=== PATIENT | female | born 1965 | race Hispanic/Latino ===

== ENCOUNTER 2023-02-27 08:20 | Day surgery (SDC) | payer OTHER ==
[2023-02-27 08:41] LABS: Potassium 3.8 mEq/L (3.5-5.1)
[2023-02-27] MEDS ORDERED: CEFAZOLIN SODIUM 2 GM/VIAL ONE (08:57)
[2023-02-27] MEDS ORDERED: Ringers Lactate 1,000 ML IV ONE (08:57)
[2023-02-27] MEDS ORDERED: dexAMETHasone 10 MG/ML VIAL ONE (10:55)
[2023-02-27] MEDS ORDERED: FENTANYL CITR 100 MCG/2 ML ONE (10:55)
[2023-02-27] MEDS ORDERED: MIDAZOLAM HCL 2 MG/2 ML INJ ONE (10:55)
[2023-02-27] MEDS ORDERED: propofoL 200 MG/20 ML VIAL IV ONE (10:55)
[2023-02-27] MEDS ORDERED: ONDANSETRON 4 MG/2 ML VIAL ONE (10:57)
[2023-02-27] MEDS ORDERED: BUPIVACAINE 0.25% PF 10 ML VIAL ONE (11:01)
[2023-02-27] MEDS ORDERED: LIDOCAINE 2% MPF 5 ML VIAL ONE (11:01)
[2023-02-27] MEDS ORDERED: KETOROLAC 30 MG/ML INJ ONE (11:08)
--- NOTE | 2023-02-27 11:46 | P.OP ---
Preoperative diagnosis: RIGHT Breast infected sebaceous cyst Postoperative diagnosis: RIGHT Breast infected sebaceous cyst Primary procedure: Excision of RIGHT Breast infected sebaceous cyst Anesthesia: GETA + Local Estimated blood loss: < 5cc Specimen: sebaceous material Findings: ~ 1.5cm sebaceous cyst - RIGHT inferior lateral breast Complications: None Transferred to: Recovery Room Condition: Good
[2023-02-27 12:07] VITALS: O2SAT 100
[2023-02-27 12:38] VITALS: TEMP 97
[2023-02-27 13:00] VITALS: BP 127/79
[2023-02-27] MEDS ORDERED: HYDROCODONE/APAP 7.5/325 MG TAB ONE (13:41)
[2023-02-27] MEDS ORDERED: ONDANSETRON 4 MG (ODT) TAB ONE (14:26)
--- NOTE | 2023-02-27 17:53 | OP ---
Date of Procedure: 02/27/2023 Surgeon: Guzman Quigley MD, Preoperative Diagnosis: Right breast infected sebaceous cyst. Postoperative Diagnosis: Right breast infected sebaceous cyst. Procedure Performed: Excision of right breast infected sebaceous cyst. Anesthesia: General endotracheal plus local with 0.25% Marcaine. Estimated Blood Loss: 5 cc. Specimens: Sebaceous material. Findings: Approximately 1.5 cm sebaceous cyst consistent with an infected cyst with abscess of the r ight inferior lateral breast. Complications: None. Disposition: The patient was transferred to recovery room in good condition. Procedure In Detail: After informed was obtained, patient was brought to the operating room, prepped and draped in the usual sterile fashion. After adequate anesthesia achieved, I made a curvilinear i ncision around an obviously infected area of the right breast on the inferior lateral aspect at the 5 o'clock position near the inframammary crease down to subcutaneous tissues. I used electrocautery t o dissect circumferentially around the cystic structure. Culture sent for aerobic and anaerobic spec iation. I then removed the entire cyst cavity as well as the cyst material and examinatio n and adipose tissue. I then achieved hemostasis with electrocautery, copiously irrigated the area, and closed the defect with 3-0 Vicryl in the deep dermal plane and subcutaneous layer was closed with 4-0 Monocryl in running fashion. Dermabond was placed over top. Patient tolerated the procedure we ll with no evidence of complication and transferred to PACU in good condition. All counts were correct at the end of the ca se. TK/MODL Voice ID: [id number] Report ID: [id number]
== END 2023-02-27 14:20 | disposition home or self-care (01) ==
LOC: OR 08:20
PROVIDERS: ATTEND Surgery
PROC: 0HBT0ZZ Excision of Right Breast, Open Approach (ICD-10-PCS; principal; 2023-02-27 11:15)
DX: L72.0 Epidermal cyst (principal); N61.1 Abscess of the breast and nipple
CPT/HCPCS: 93005; 87070; 80048; 36415; 87205; 88304; 87075; 87077; 87186; 19120; Q0162; J2704; J2001; J2250; J3010; J1100; J2405; J7120

== ENCOUNTER 2023-03-01 00:51 | Emergency (ER) | payer OTHER ==
--- OUTSIDE RECORDS SUMMARY | 2023-03-01 00:55 | XMS REPORT | Continuity of Care Document ---
:1965 Author Organization [facility] t Address [address] [facility] [address] [place] [address] Care Team Providers Name Role Phone No MD, Pcp Primary Care Physician Unavailable VLADIMIR MCCLELLAND Attending Clinician Unavailable KAY JUDD Attending Clinician Unavailable SHANDA LANCASTER Attending Clinician Unavailable ZAKIA JARQUIN Attending Clinician Unavailable LAB90 Attending Clinician Unavailable EDDY LOVING Attending Clinician Unavailable Faith Gutierrez Attending Clinician Faith CRAMER Attending Clinician Unavailable Doctor Unassigned, [place] Attending Clinician Unavailable TAMIKA WRIGHT Attending Clinician Unavailable Josse Moreno DO Attending Clinician Tamika Britton Attending Clinician Mary Sanches MA Attending Clinician Unavailable VLADIMIR MCCLELLAND Attending Clinician Unavailable Oliver Tobar Attending Clinician Unavailable Jose Gandhi Attending Clinician Unavailable Lab, Adc Fam Pob I Attending Clinician Unavailable Joana Landon Attending Clinician Padmini Stanford Attending Clinician PADMINI VALLEJO Attending Clinician Unavailable JOSSE MORENO Admitting Clinician Unavailable KNOW, DOES_NOT Admitting Clinician Unavailable Payers Payer Name Policy Type Policy Number Effective Date Expiration Date Burak WONG [id number] 2020 HEALTH PLAN 00:00:00 [employer] MP CVS 9 [id number] 2022 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 94 00:00:00 ON STAND Problems Condition Condition Condition Status Onset Resolution Last Treating Co mments Source Name Details Category Date Date Treatment Clinician Date Bimalleola Bimalleola Disease Active 2020-04 U T r ankle r ankle 0-20 Health fracture, fracture, 00:00: left, left, 00 closed, closed, initial initial encounter encounter Acute left Acute left Disease Active 2020-04 U T ankle pain ankle pain 0-20 He alth 00:00: 00 Ankle Ankle Disease Active 2020-04 [facility] swelling, swelling, 0-20 Heal th left left 00:00: 00 Right arm Right arm Disease Active Uni vers pain pain 1-21 ity of 00:00: [address] Allergies, Adverse Reactions, Alerts Allergy Allergy Status Severity Reaction(s) Onset Inactive Treating Comm ents Source Name Type Date Date Clinician No Known DA Active U 2020[facility]04 [facility] No Known DA Active U 2020-04 [facility] All[facility]ie 0-08 [facility] 00[facility] e 00 [facility] NO KNOWN Drug Active Univers ALLERGIE Class ity of S [facility] Social History Social Habit Start Date Stop Date Quantity Comments Source History [facility] Health Alcohol Std Drinks History [facility] Health Alcohol Binge History [facility] Health Alcohol Comment Sexual orientation Stefanie Peterson - External Alcohol intake 2023-02-20 2023-02-20 Lifetime Stefanie sewell - 00:00:00 00:00:00 non-drinker External (finding) History of Social 2023-02-20 2023-02-20 Stefanie Peterson - function 00:00:00 00:00:00 External Exposure to 2022-07-28 2022-08-07 Not sure University [facility]-CoV-2 (event) 00:00:00 12:31:00 [facility] Tobacco use and 2021-02-13 2021-02-13 Smokeless [facility] exposure 00:00:00 00:00:00 tobacco non-user History SDOH 2021-02-13 2021-02-13 1 [facility] Alcohol Frequency 00:00:00 00:00:00 Sex [birth year] Stefanie vann - 00:00:00 00:00:00 External Smoking Status Start Date Stop Date Source Never smoked tobacco Stefanie sandoval - External Medications Ordered Filled Start Stop Current Ordering Indication Dosage Frequency Signature Comments Components Source Medication Medication Date Date Medication? Clinician (SIG) Name Name Doxycycline 2022-04 Yes [id number] 100mg Take 1 Stefanie Hyclate 100 0-27 tablet Seybol d MG oral 00:00: (100 mg - Tablet 00 total) by Externa mouth 2 l times daily. iopamidol 2021- No [id number] 100mL 100 mL, Univers (ISOVUE 11-09 Intravenou ity o f 370-500 mL) 08:30: 08:30 s, ONCE, 1 [place] injection 00 :00 dose, On Medica l 100 mL Sat Branch 11/09/21 at 0330, Routine ketorolac 2021- No 15mg 15 mg, Unive rs (TORADOL) 11-09 Slow IV ity of injection 08:15: 07:07 Push, [place] 15 mg 00 :00 ONCE, 1 Medical dose, On Branch 11/09/21 at 0315, Routine pantoprazol 2021- No 80mg 80 mg, IV Univers e 11-09 Push, ity of (PROTONIX) 07:15: 07:17 ONCE, 1 Jose Daniel as 80 mg in 00 :00 dose, On Medical NaCl 0.9% Sat Branch (NS) 20 mL 11/09/21 at syringe 0215, Administer over 2 Minutes, 20 mL ondansetron 2021-0 2021- No 4mg 4 mg, Slow Univers (ZOFRAN 11-09-16 IV Push, ity of (PF)) 07:15: 06:26 ONCE, 1 [place] injection 4 00 :00 dose, On Medi jackson mg Sat Branch 11/09/21 at 0215, Routine ciprofloxac 2-0 Yes [id number] 500mg Take 1 Univers in HCl 500 7-16 tablet by ity of mg tablet 00:00: [place] 00 the Medical morning Branch and 1 tablet in the evening. metroNIDAZO 2022-0 Yes [id number] 500mg Take 1 Univers LE 500 mg 7-16 tablet by ity o f tablet 00:00: mouth in [place] 00 the Medical morning Branch and 1 tablet in the evening. ondansetron 2022-0 Yes [id number] 4mg Take 1 Univers 4 mg 7-16 tablet by ity of disintegrat 00:00: mouth [place] ing tablet 00 every 8 Medica l (eight) Branch hours as needed for Nausea and Vomiting (N/V). ciprofloxac 2022-0 Yes [id number] 500mg Take 1 Univers in HCl 500 7-16 tablet by ity of mg tablet 00:00: [place] 00 the Medical morning Branch and 1 tablet in the evening. metroNIDAZO 2022-0 Yes [id number] 500mg Take 1 Univers LE 500 mg 7-16 tablet by ity o f tablet 00:00: mouth in [place] 00 the Medical morning Branch and 1 tablet in the evening. ondansetron 2022-0 Yes [id number] 4mg Take 1 Univers 4 mg 7-16 tablet by ity of disintegrat 00:00: mouth [place] ing tablet 00 every 8 Medica l (eight) Branch hours as needed for Nausea and Vomiting (N/V). ciprofloxac 2022-0 Yes [id number] 500mg Take 1 Univers in HCl 500 7-16 tablet by ity of mg tablet 00:00: [place] 00 the Medical morning Branch and 1 tablet in the evening. metroNIDAZO 2022-0 Yes [id number] 500mg Take 1 Univers LE 500 mg 7-16 tablet by ity o f tablet 00:00: mouth in [place] 00 the Medical morning Branch and 1 tablet in the evening. ondansetron Yes [id number] 4mg Take 1 Univers 4 mg 7-16 tablet by ity of disintegrat 00:00: mouth [place] ing tablet 00 every 8 Medica l (eight) Branch hours as needed for Nausea and Vomiting (N/V). traMADol 2020-04 Yes [id number] 100mg Q6H Take 2 UT (Ultram) 50 1-12 [id number] tablets Hea lth MG tablet 00:00: (100 mg 00 total) by mouth every 6 (six) hours if needed for severe pain. traMADol 2020-04 Yes [id number] 100mg Q6H Take 2 UT (Ultram) 50 1-12 [id number] tablets Hea lth MG tablet 00:00: (100 mg 00 total) by mouth every 6 (six) hours if needed for severe pain. traMADol 2020-04 Yes [id number] 100mg Q6H Take 2 UT (Ultram) 50 1-12 [id number] tablets Hea lth MG tablet 00:00: (100 mg 00 total) by mouth every 6 (six) hours if needed for severe pain. ondansetron 2020-04 Yes [id number] 8mg Take 1 UT (Zofran) 8 0-27 [id number] tablet (8 He alth MG tablet 00:00: mg total) 00 by mouth every 8 (eight) hours if needed for nausea or vomiting. traMADol 2020-04 Yes [id number] 100mg Q6H Take 2 UT (Ultram) 50 0-27 [id number] tablets Hea lth MG tablet 00:00: (100 mg 00 total) by mouth every 6 (six) hours if needed for severe pain. ondansetron 2020-04 Yes [id number] 8mg Take 1 UT (Zofran) 8 0-27 [id number] tablet (8 He alth MG tablet 00:00: mg total) 00 by mouth every 8 (eight) hours if needed for nausea or vomiting. traMADol 2020-04 Yes [id number] 100mg Q6H Take 2 UT (Ultram) 50 0-27 [id number] tablets Hea lth MG tablet 00:00: (100 mg 00 total) by mouth every 6 (six) hours if needed for severe pain. ondansetron 2020-04 Yes [id number] 8mg Take 1 UT (Zofran) 8 0-27 [id number] tablet (8 He alth MG tablet 00:00: mg total) 00 by mouth every 8 (eight) hours if needed for nausea or vomiting. traMADol 2020-04 Yes [id number] 100mg Q6H Take 2 UT (Ultram) 50 0-27 [id number] tablets Hea lth MG tablet 00:00: (100 mg 00 total) by mouth every 6 (six) hours if needed for severe pain. ondansetron 2020-04 Yes [id number] 8mg Take 1 UT (Zofran) 8 0-27 [id number] tablet (8 He alth MG tablet 00:00: mg total) 00 by mouth every 8 (eight) hours if needed for nausea or vomiting. traMADol 2020-04 Yes [id number] 100mg Q6H Take 2 UT (Ultram) 50 0-27 [id number] tablets Hea lth MG tablet 00:00: (100 mg 00 total) by mouth every 6 (six) hours if needed for severe pain. ondansetron 2020-04 Yes [id number] 8mg Take 1 UT (Zofran) 8 0-27 [id number] tablet (8 He alth MG tablet 00:00: mg total) 00 by mouth every 8 (eight) hours if needed for nausea or vomiting. traMADol 2020-04 Yes [id number] 100mg Q6H Take 2 UT (Ultram) 50 0-27 [id number] tablets Hea lth MG tablet 00:00: (100 mg 00 total) by mouth every 6 (six) hours if needed for severe pain. HYDROcodone 2020-04- No [id number] 1{tbl} Q6H Take 1 UT -acetaminop 03-03 [id number] tablet by Health hen ([place]) 00:00: 04:59 mouth 10-325 MG 00 :00 every 6 tablet (six) hours if needed for severe pain for up to 10 days. cephalexin 2020-04- No [id number] 500mg Q.55050558 Take 1 UT (Keflex) 02-26 351837 [id number] capsule Health 500 MG 00:00: 04:59 3D (500 mg capsule 00 :00 total) by mouth 3 (three) times a day for 5 days. acetaminoph 2019- No 1000mg 1,000 mg, Univers en 10-31 Oral, ity of (TYLENOL) 02:15: 01:19 ONCE, [place] tablet 00 :00 dose, [facility] Medical 1,000 mg 10/31/19 at [place] 2115, [facility] ibuprofen 2019- No 800mg 800 mg, Uni vers (IBU) 10-31 Oral, ity of tablet 800 02:15: 01:19 ONCE, 1 Jose Daniel as mg 00 :00 dose, [facility] Medical 10/31/19 at [place] 2115, RONAL NaCl 0.9% 2019- No 1000mL at 999 Uni vers (NS) bolus 10-31 mL/hr, ity of infusion 01:15: 03:33 1,000 mL, Jose Daniel as 1,000 mL 00 :00 IV Medical Infusion, [place] ONCE, 1 dose, [facility] 10/31/19 at 2015, RONAL acetaminoph Yes 1{tbl} Take 1 Tab Univers en-codeine 1-12 by mouth ity o f (TYLENOL-CO 00:00: every 6 Jose Daniel as DEINE #3) 00 (six) Medical 300-30 mg hours as Branch tablet needed for Pain (scale 4-6). acetaminoph Yes 1{tbl} Take 1 Tab Univers en-codeine 1-12 by mouth ity o f (TYLENOL-CO 00:00: every 6 Jose Daniel as DEINE #3) 00 (six) Medical 300-30 mg hours as Branch tablet needed for Pain (scale 4-6). acetaminoph Yes 1{tbl} Take 1 Tab Univers en-codeine 1-12 by mouth ity o f (TYLENOL-CO 00:00: every 6 Jose Daniel as DEINE #3) 00 (six) Medical 300-30 mg hours as Branch tablet needed for Pain (scale 4-6). acetaminoph Yes 1{tbl} Take 1 Tab Univers en-codeine 1-12 by mouth ity o f (TYLENOL-CO 00:00: every 6 Jose Daniel as DEINE #3) 00 (six) Medical 300-30 mg hours as Branch tablet needed for Pain (scale 4-6). acetaminoph Yes 1{tbl} Take 1 Tab Univers en-codeine 1-12 by mouth ity o f (TYLENOL-CO 00:00: every 6 Jose Daniel as DEINE #3) 00 (six) Medical 300-30 mg hours as Branch tablet needed for Pain (scale 4-6). acetaminoph Yes 1{tbl} Take 1 Tab Univers en-codeine 1-12 by mouth ity o f (TYLENOL-CO 00:00: every 6 Jose Daniel as DEINE #3) 00 (six) Medical 300-30 mg hours as Branch tablet needed for Pain (scale 4-6). acetaminoph Yes 1{tbl} Take 1 Tab Univers en-codeine 1-12 by mouth ity o f (TYLENOL-CO 00:00: every 6 Jose Daniel as DEINE #3) 00 (six) Medical 300-30 mg hours as Branch tablet needed for Pain (scale 4-6). 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) Vital Signs Vital Name Observation Time Observation Value Comments Source Systolic blood 2023-02-20 19:39:00 118 mm[Hg] Stefanie Garciaold - pressure External Diastolic blood 2023-02-20 19:39:00 90 mm[Hg] Angeles Peterson - pressure External Heart rate 2023-02-20 19:39:00 73 /min Stefanie munoz - External Body temperature 2023-02-20 19:39:00 36.06 Danya Josie chowdhury Seybold - External Respiratory rate 2023-02-20 19:39:00 15 /min Josie chowdhury Seybold - External Body height 2023-02-20 19:39:00 157.5 cm Stefanie chowdhurybomonica - External Body weight 2023-02-20 19:39:00 78.926 kg Stefanie chowdhurybold - External BMI 2023-02-20 19:39:00 31.83 kg/m2 Stefanie S eybold - External Systolic blood 2022-08-07 19:20:43 129 mm[Hg] Univer sity of pressure [place] [facility] Diastolic blood 2022-08-07 19:20:43 78 mm[Hg] Unive rsity of pressure [place] [facility] Heart rate 2022-08-07 19:20:43 68 /min Universi ty of [place] [facility] Respiratory rate 2022-08-07 19:20:43 18 /min Univ ersity of [place] [facility] Oxygen saturation in 2022-08-07 19:20:43 99 /min University of Arterial blood by [place] [employer] jackson Pulse oximetry Branch Body temperature 2022-08-07 17:33:00 36.89 Danya Univ ersity of [place] [facility] Body height 2022-08-07 17:33:00 157.5 cm Universi ty [facility] [place] [facility] Body weight 2022-08-07 17:33:00 77.111 kg [facility] [place] [facility] BMI 2022-08-07 17:33:00 31.09 kg/m2 [facility]i ty [facility] [place] [facility] Systolic blood 2021-11-09 09:00:00 118 mm[Hg] Univer sity of pressure [place] [facility] Diastolic blood 2021-11-09 09:00:00 96 mm[Hg] Unive rsity of pressure [place] [facility] Heart rate 2021-11-09 09:00:00 74 /min Universi ty [facility] [place] [facility] Respiratory rate 2021-11-09 09:00:00 18 /min Univ ersity of [place] [facility] Oxygen saturation in 2021-11-09 09:00:00 97 /min University of Arterial blood by [place] [employer] jackson Pulse oximetry Branch Body temperature 2021-11-09 06:09:00 37.44 Danya Univ ersity [facility] [place] [facility] Body height 2021-11-09 06:09:00 157.5 cm Universi ty of [place] [facility] Body weight 2021-11-09 06:09:00 72.576 kg [facility]i ty [facility] [place] [facility] BMI 2021-11-09 06:09:00 29.26 kg/m2 [facility] [place] [facility] Systolic blood 2019-11-01 02:52:10 115 mm[Hg] Univer sity of pressure [place] [facility] Diastolic blood 2019-11-01 02:52:10 67 mm[Hg] Unive rsity of pressure [place] [facility] Heart rate 2019-11-01 02:52:10 91 /min [facility] Body temperature 2019-11-01 02:52:10 38.33 Danya [facility] Respiratory rate 2019-11-01 02:52:10 19 /min [facility] Oxygen saturation in 2019-11-01 02:52:10 95 /min University [facility] blood by [facility] Pulse oximetry Branch Body weight 2019-11-01 00:56:00 77.111 kg [facility] BMI 2019-11-01 00:56:00 31.09 kg/m2 [facility] Procedures Procedure Date / Time Performing Clinician Source Performed CONSENT/REFUSAL FOR 2022-08-07 17:26:12 [facility] ANGIOGRAM 2021-11-09 08:23:[address] [facility] ABDOMEN/PELVIS Medical Branch LIPASE 2021-11-09 06:22:00 [facility] COMP. METABOLIC PANEL 2021-11-09 06:22:00 [place] [facility] ([id number]) [facility] CBC WITH DIFF 2021-11-09 06:22:00 [facility] URINALYSIS 2021-11-09 06:22:00 [facility] NOTICE OF PRIVACY 2021-11-09 06:02:53 Doctor Unassigned, No [facility] PRACTICES Name [facility] CONSENT/REFUSAL FOR 2021-11-09 06:02:40 Doctor Unassigned, [facility] Name [facility] XR ANKLE 3+ VIEWS LEFT 2021-03-06 20:06:41 Vladimir [facility]cclelland [facility] CHEST 1 VW COVID 2019-11-01 01:47:00 Padmini Vallejo [facility] TROPONIN I 2019-11-01 01:28:00 Padmini Vallejo [facility] COMP. METABOLIC PANEL 2019-11-01 01:28:00 Padmini [facility] ([id number]) [facility] CBC WITH DIFFERENTIAL 2019-11-01 01:28:00 Padmini Vallejo [facility] EKG-12 LEAD 2019-11-01 01:06:32 Padmini Vallejo [facility] NOTICE OF PRIVACY 2019-11-01 00:42:31 Doctor Unassigned, No Univ [facility] PRACTICES Name [facility] CONSENT/REFUSAL FOR 2019-11-01 00:42:17 Doctor Unassigned, [facility] Name Medical [place] Encounters Start End Encounter Admission Attending Care Care Encounter Source Date/Time Date/Time Type Type Clinicians Facility Department ID 2022-06-23 Outpatient [facility] [id number] [place] 14:28:33 [id number] [facility] 2021-05-29 Outpatient [facility] [id number] [place] 13:30:07 [facility] 2021-05-23 Outpatient GAUVAIN, [facility] [id number] [place] 01:05:33 [facility] 2021-05-01 Outpatient [facility] [id number] [place] 13:08:23 [facility] 2021-04-03 Outpatient [facility] [id number] [place] 13:49:54 [facility] 2021-04-03 Outpatient GAUVAIN, [facility] [id number] [place] 08:10:33 [facility] 2021-03-06 Outpatient GAUVAIN, [facility] [id number] [place] 14:46:19 [facility] 2021-03-06 Outpatient [facility] [id number] [place] 13:44:38 [facility] 2021-02-22 Outpatient GAUVAIN, [facility] [id number] [place] 12:02:27 [facility] 2021-02-13 Outpatient [facility] [id number] [place] 13:48:21 [facility] 2023-07-17 2023-07-17 Outpatient KAY JUDD [id number] Stefanie 08:00:00 08:00:00 Seybol d 2023-02-23 2023-02-23 Outpatient SHANDA LANCASTER [id number] Stefanie 08:45:00 08:45:00 Seybol d 2023-02-23 2023-02-23 Outpatient STEFANIE JARQUIN [id number] tSefanie 00:00:00 00:00:00 ZAKIA Seybol d 2023-02-20 2023-02-20 Outpatient LAB90 STEFANIE STEFANIE [id number] Stefanie 15:45:00 15:45:00 Seybol d 2023-02-20 2023-02-20 Outpatient STEFANIE JARQUIN STEFANIE [id number] Stefanie 15:00:00 15:00:00 ZAKIA Seybol d 2023-02-19 2023-02-19 Outpatient FABIENNE STEFANIE STEFANIE [id number] Stefanie 15:00:00 15:00:00 EDDY Seybol d 2022-08-07 2022-08-07 Emergency Faith Cramer [facility] [id number] Univers 12:35:00 14:22:00 Giovana ANTOINE [id number] i ty [facility] 4.2.7.2.686 [facility] [id number] [place] [id number] Branch 2022-08-07 2022-08-07 Emergency X Faith CRAMER [facility] ERT [id number] Univers 12:35:00 14:22:00 ity [facility] [facility] 2022-08-07 2022-08-07 Orders Doctor VENTURA 1.2.840.114 [id number] Univers 00:00:00 00:00:00 Only Unassigned, [place] [id number] ity of [place] [facility] [id number] Jose Daniel [id number] [facility] 009 Branch 2021-11-09 2021-11-09 Emergency X ADRIANA ARARNULFO ERT [id number] Univers 01:14:00 04:39:00 TAMIKA it y of [facility] 2021-11-09 2021-11-09 Emergency Josse Moreno [facility] 1.2.840. 114 [id number] Univers 01:14:00 04:39:00 Tamika Wright 350.1.13. 10 ity [facility] 4.2.7.2.686 [facility] [phone] [place] 042544 Branch 2021-11-09 2021-11-09 Orders Doctor VENTURA 1.2.840.114 [id number] Univers 00:00:00 00:00:00 Only Unassigned, [place] [id number] ity of [place] [facility] 4.2.7.2.686 Jose Daniel as [id number] [address] 2021-05-29 2021-05-29 Office KRYSTIN [facility] 1.2.840.114 [id number] [place] 13:00:00 13:15:00 Visit VLADIMIR COELLO [id number] H ealt MEDICAL 9.2.7.2.686 PLA[place] 0 [id number] 5 2021-05-01 2021-05-01 Office KRYSTIN [facility] 1.2.840.114 [id number] [place] 13:00:00 13:15:00 Visit VLADIMIR COELLO [id number] [facility] MEDICAL 9.2.7.2.686 [place] 7 [id number] 5 2021-03-08 2021-03-08 Refill SanchesMary [facility] 1.2.840.1 14 [id number] [place] 00:00:00 00:00:00 Mary Sanches [id number] Health MEDICAL 9.2.7.2.686 [place] 5 [id number] 2021-03-06 2021-03-06 Office Krystin [facility] 1.2.840.114 [id number] [place] 13:39:31 14:58:19 Visit Vladimir COELLO [id number] [facility] MEDICAL 9.2.7.2.686 PLA[place] 2 [id number] 5 2021-02-21 2021-02-21 Outpatient KRYSTIN, MHBL MHBL [id number] MHBL 10:05:00 15:49:00 [facility] 2021-02-21 2021-02-21 EXT [facility] OP Krystin, EXT MSRDP 1.2.840.114 [id number] [place] 12:18:34 15:18:34 [facility] LOCATION [id number] H ealth 9.2.7.2.686 [id number] 1 2021-02-21 2021-02-21 EXT [facility] OP ARIAS Mcclelland MSRDP 1.2.840.114 [id number] [place] 12:18:34 15:18:34 Vladimir TARANGO [id number] H ealth 9.2.7.2.686 [id number] 1 2021-02-20 2021-02-20 Refill Mary Sanches [facility] 1.2.840.1 14 [id number] [place] 00:00:00 00:00:00 Mary Sanches [id number] Health MEDICAL 9.2.7.2.686 [place] 9 [id number] 5 2021-02-13 2021-02-13 Office MONSTER Mcclelland [facility] 1.2.840.114 [id number] [place] 12:05:10 15:26:50 Visit Vladimir COELLO 350.1.13.58 H ealt MEDICAL 9.2.7.2.686 [place] 8 [id number] 5 2021-02-13 2021-02-13 Refill Mary Sanches [facility] 1.2.840.1 14 [id number] [place] 00:00:00 00:00:00 Mary Sanches [id number] Health MEDICAL 9.2.7.2.686 PLA[place] 4 [id number] 5 2021-02-08 2021-02-08 Inpatient EM ZINA Tobar [id number] [facility] 12:04:00 12:35:00 Oliver 37 [facility] 2021-02-01 2021-02-01 Inpatient EM GandhiZINA [id number] [facility] 20:20:00 22:42:00 Jose 30 [facility] 2020-04-18 2020-04-18 Laboratory Lab, Adc Fam Pob I [facility] 1.2. [id number] 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 350.1.13.10 ity of [place] [facility] 4.2.7.2.686 Jose Daniel as MATERNAL [id number] Med ical & CHILD [address] [place] [address] 2019-10-31 2019-10-31 Emergency [facility] 1.2.840.114 [id number] Univers 20:02:38 22:46:00 Padmini Antoine 350.1.13.10 i ty of [place] 4.2.7.2.686 [place] [facility] [id number] [place] 042544 [place] 2019-10-31 2019-10-31 Emergency X VALLEJO, [facility] ERT [id number] Univers 20:02:38 20:02:38 PADMINI gomez of [facility] Results Test Description Test Time Test Comments Results Result Comments Source COMP. METABOLIC PANEL (41307) 2021-11-09 07:11:19 Test Item Value Reference Range Interpretation Comme nts NA (test code = 4202931039) 141 mmol/L 135-145 K (test code = 1946806940) 3.9 mmol/L 3.5-5 CL (test code = 1311375936) 104 mmol/L 98-108 CO2 TOTAL (test code = 26 mmol/L 23-31 5830703835) AGAP (test code = 3816607300) 2-16 BUN (test code = 1301145751) 22 mg/dL 7-23 GLUCOSE (test code = 4067463729) 110 mg/dL 70-110 CREATININE (test code = 0.58 mg/dL 0.5-1.04 9456726790) TOTAL BILI (test code = 0.5 mg/dL 0.1-1.8 5278144237) CALCIUM (test code = 5931837239) 9.7 mg/dL 8.6-10.6 T PROTEIN (test code = 7.8 g/dL 6.3-8.2 6709978590) ALBUMIN (test code = 7655852333) 4.4 g/dL 3.5-5 ALK PHOS (test code = 6339926539) 82 U/L 34-122 ALTv (test code = 1742-6) 24 U/L 5-35 AST(SGOT) (test code = 22 U/L 13-40 2575643585) eGFR (test code = 0907995210) mL/min/1.73m2 CELESTINO (test code = CELESTINO) Association of Glomerular Filtration Rate (GFR) and Staging of Kidney Disease* + +--------- + ----+| GFR (mL/min/1.73 m2) ?| With Kidney Damage ?| ?Without Kidney Damage+ +--- + +| ?>90 ?| ?Stage one ?| ? Normal ?+ +-------- + -----+| ?60-89 ?| ?Stage two ?| ? Decreased GFR ? + +--------- + ----+| ?30-59 ?| ?Stage three ?| ? Stage three ? + +--------- + ----+| ?15-29 ?| ?Stage four ? | ? Stage four ?+ +-------- + -----+| ?<15 (or dialysis) ? ?| ?Stage five ? | ? Stage five ?+ +-------- + -----+ *Each stage assumes the associated GFR level has been in effect for at least three months. ?Stages 1 to 5, with or without kidney disease, indicate chronic kidney disease. Notes: Determination of stages one and two (with eGFR >59mL/min/1.73 m2) requires estimation of kidney damage for at least three months as defined by structural or functional abnormalities of the kidney, manifested by either:Pathological abnormalities or Markers of kidney damage (including abnormalities in the composition of the blood or urine or abnormalities in imaging tests). [facility]10[facility]39 Test Item Value Reference Range Interpretation Comments LIPASE (test code = 8928829924) 185 U/L 0-220 Lab Interpretation (test code = Normal 45420-4) [facility] WITH [id number] 07:04:42 Test Item Value Reference Range Interpretation Comments WBC (test code = See_Comment H [Automated 6690-2) message] The sy stem which generated this result transmitted reference range : 4.30 - 11.10 10*3/?L. The reference range was not used to interpret this result as normal/abnormal . RBC (test code = See_Comment [Automated 789-8) message] The sy stem which generated this result transmitted reference range : 3.93 - 5.25 10*6/?L. The reference range was not used to interpret this result as normal/abnormal . HGB (test code = 13.7 g/dL 11.6-15 718-7) HCT (test code = 39.7 % 35.7-45.2 4544-3) MCV (test code = 95.2 fL 80.6-95.5 787-2) MCH (test code = 32.9 pg 25.9-32.8 H 785-6) MCHC (test code = 34.5 g/dL 31.6-35.1 786-4) RDW-SD (test code = 43.5 fL 39-49.9 96167-2) RDW-CV (test code = 12.4 % 12-15.5 788-0) PLT (test code = See_Comment [Automated 777-3) message] The sy stem which generated this result transmitted reference range : 166 - 358 10*3/ ?L. The reference r ana was not used to interpret this result as normal/abnormal . MPV (test code = 11.8 fL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
[2023-03-01] MEDS ORDERED: DERMABOND SKIN ADHESIVE TOP ONE (02:05)
--- NOTE | 2023-03-01 02:10 | ER ---
Nurse's Notes [facility] Name: Ana Maria Ruiz Age: 57 yrs Sex: Female : 1965 Arrival Date: 03/01/2023 Time: 00:51 Bed 3 Private MD: Diagnosis: Wound dehiscence Presentation: 03/01 01:29 Chief complaint: Patient states: cyst removed from left breast on Thursday and today it vc1 opened up. It was glued. Coronavirus screen: Vaccine status: Patient reports being unvaccinated. Client denies travel out of the [place] in the last 14 days. At this time, the client does not indicate any symptoms associated with coronavirus-19. Ebola Screen: Patient negative for fever greater than or equal to 101.5 degrees Fahrenheit, and additional compatible Ebola Virus Disease symptoms Patient denies exposure to infectious person. Patient denies travel to an Ebola-affected area in the 21 days before illness onset. No symptoms or risks identified at this time. Risk Assessment: Do you want to hurt yourself or someone else? Patient reports no desire to harm self or others. Onset of symptoms was March 01, 2023. 01:29 Method Of Arrival: Ambulatory vc1 01:29 Acuity: TIFFANY 4 vc1 01:29 Initial Sepsis Screen: Does the patient meet any 2 criteria? No. Patient's initial vc1 sepsis screen is negative. Does the patient have a suspected source of infection? No. Patient's initial sepsis screen is negative. Triage Assessment: 01:31 General: Appears in no apparent distress. uncomfortable, Behavior is calm, cooperative, vc1 appropriate for age. Pain: Complains of pain in left breast. EENT: No deficits noted. No signs and/or symptoms were reported regarding the EENT system. Neuro: No deficits noted. Cardiovascular: No deficits noted. Respiratory: No deficits noted. GI: No deficits noted. No signs and/or symptoms were reported involving the gastrointestinal system. : No deficits noted. No signs and/or symptoms were reported regarding the genitourinary system. Derm: Reports open incision left breast. Historical: - Allergies: 01:30 No Known Allergies; vc1 - Home Meds: 01:30 None [Active]; vc1 - PMHx: 01:30 None; vc1 - PSHx: 01:30 cyst removed left breast; Ligation of fallopian tube; vc1 - Immunization history:: Client reports having NOT received the Covid vaccine. - Social history:: Smoking status: Patient denies any tobacco usage or history of. - Family history:: not pertinent. Screenin:39 [facility] ED Fall Risk Assessment (Adult) History of falling in the last 3 months, vc1 including since admission No falls in past 3 months (0 pts) Confusion or Disorientation No (0 pts) Intoxicated or Sedated No (0 pts) Impaired Gait No (0 pts) Mobility Assist Device Used No (0 pt) Altered Elimination No (0 pt) Score/Fall Risk Level 0 - 2 = Low Risk Oriented to surroundings, Maintained a safe environment, Educated pt \T\ family on fall prevention, incl call for assistance when getting out of bed. Abuse screen: Denies threats or abuse. Nutritional screening: No deficits noted. Tuberculosis screening: No symptoms or risk factors identified. Vital Signs: 01:29 Weight 78.93 kg; Height 5 ft. 2 in. ; Pain 5/10; vc1 01:31 BP 132 / 88; Pulse 68; Resp 18; Temp 97.9; Pulse Ox 99% ; vc1 01:29 Body Mass Index 31.82 (78.93 kg, 157.48 cm) vc1 01:29 Pain Scale: Adult vc1 ED Course: 00:53 Patient arrived in ED. jj6 00:57 Milan Soria MD is Attending Physician. sp4 01:30 Triage completed. vc1 01:31 Arm band placed on right wrist. vc1 02:09 Guzman Quigley MD is Referral Physician. sp4 02:40 No provider procedures requiring assistance completed. Patient did not have IV access vc1 during this emergency room visit. Administered Medications: 02:40 Not Given (Other Intervention Used): lidocaine(1 %) 20 ml 20 ml Infiltration once; to vc1 bedside Medication: 02:41 VIS not applicable for this client. vc1 Outcome: 02:10 Discharge ordered by . sp4 02:40 Discharged to home ambulatory, with family, vc1 02:40 Condition: good 02:40 Discharge instructions given to patient, Instructed on discharge instructions, follow up and referral plans. Demonstrated understanding of instructions, follow-up care, 02:41 Patient left the ED. vc1 Signatures: Robyn [id number] Jayda Singh, OCTAVIANO RN vc1 Milan Soria MD MD sp4
--- NOTE | 2023-03-01 02:10 | EDPHYS ---
Physician Documentation [facility] Name: Ana Maria Ruiz Age: 57 yrs Sex: Female : 1965 Arrival Date: 03/01/2023 Time: 00:51 Bed 3 Private MD: ED Physician Milan Soria HPI: 03/01 00:57 This 57 yrs old Female presents to ER via Unassigned with complaints of Post sp4 Surgical Bleeding, Post Surgical Pain, PT HAD CYST ON BREAST REMOVED YESTERDAY 02/28/23, PT STATES INCISION IS OPENING AND BLEEDING. 21:13 Patient presents with left breast postoperative incision bleeding. There is mild wound sp4 dehiscence with small amount of bleeding and drainage. . Historical: - Allergies: 01:30 No Known Allergies; vc1 - Home Meds: 01:30 None [Active]; vc1 - PMHx: 01:30 None; vc1 - PSHx: 01:30 cyst removed left breast; Ligation of fallopian tube; vc1 - Immunization history:: Client reports having NOT received the Covid vaccine. - Social history:: Smoking status: Patient denies any tobacco usage or history of. - Family history:: not pertinent. ROS: 21:13 Constitutional: Negative for fever, chills, and weight loss, positive bleeding from sp4 left breast postoperative incision 21:13 All other systems are negative, Exam: 21:13 Constitutional: This is a well developed, well nourished patient who is awake, alert, sp4 and in no acute distress. Head/Face: Normocephalic, atraumatic. Eyes: Pupils equal round and reactive to light, extra-ocular motions intact. Lids and lashes normal. Conjunctiva and sclera are not injected. Cornea within normal limits. Periorbital areas with no swelling, redness, or edema. ENT: Nares patent. No nasal discharge, no septal abnormalities noted. Tympanic membranes are normal and external auditory canals are clear. Oropharynx with no redness, swelling, or masses, exudates, or evidence of obstruction, uvula midline. Mucous membranes moist. Neck: Trachea midline, no thyromegaly or masses palpated, and no cervical lymphadenopathy. Supple, full range of motion without nuchal rigidity, or vertebral point tenderness. Chest/axilla: Normal chest wall appearance and motion. Nontender with no deformity. No lesions are appreciated. Cardiovascular: Regular rate and rhythm with a normal S1 and S2. No gallops, murmurs, or rubs. Normal PMI, no JVD. No pulse deficits. Respiratory: Lungs have equal breath sounds bilaterally, clear to auscultation and percussion. No rales, rhonchi or wheezes noted. No increased work of breathing, no retractions or nasal flaring. Abdomen/GI: Soft, non-tender, with normal bowel sounds. No distension or tympany. No guarding or rebound. No evidence of tenderness throughout. Back: No spinal tenderness. No costovertebral tenderness. Skin: Warm, dry with normal turgor. Normal color with no rashes, no lesions, and no evidence of cellulitis. Small 5 cm left lower lateral breast postoperative incision with 5 mm wound dehiscence small amount of bleeding drainage MS/ Extremity: Pulses equal, no cyanosis. Neurovascular intact. Full, normal range of motion. Neuro: Awake and alert, GCS 15, oriented to person, place, time, and situation. Cranial nerves II-XII grossly intact. Motor strength 5/5 in all extremities. Sensory grossly intact. Psych: Awake, alert, with orientation to person, place and time. Behavior, mood, and affect are within normal limits Vital Signs: 01:29 Weight 78.93 kg; Height 5 ft. 2 in. ; Pain 5/10; vc1 01:31 BP 132 / 88; Pulse 68; Resp 18; Temp 97.9; Pulse Ox 99% ; vc1 01:29 Body Mass Index 31.82 (78.93 kg, 157.48 cm) vc1 01:29 Pain Scale: Adult vc1 Procedures: 21:13 Performed Wound care, postoperative incision care. Postoperative incision was cleaned sp4 with chlorhexidine and Steri-Strips were applied to close 5 mm wound dehiscence. Left lower lateral breast postoperative incision was then dressed with 4 x 4 and foam tape. Patient was advised to see her surgeon as scheduled for postoperative visit.. MDM: 00:57 Patient medically screened. sp4 21:13 Differential Diagnosis Wound dehiscence, postoperative complication, postoperative sp4 bleeding, postoperative seroma. Data reviewed: vital signs, nurses notes, old medical records. Consideration of Admission/Observation Escalation of care including admission/observation considered. ED course: After wound care and dressing patient was discharged home in stable condition. . 03/01 01:39 Order name: Dressing - Wound; Complete Time: 02:15 sp4 03/01 01:39 Order name: Gloves, Sterile; Complete Time: 02:15 sp4 03/01 01:39 Order name: Setup Suture Tray; Complete Time: 02:15 sp4 03/01 01:52 Order name: Dermabond; Complete Time: 02:15 sp4 Administered Medications: 02:40 Not Given (Other Intervention Used): lidocaine(1 %) 20 ml 20 ml Infiltration once; to vc1 bedside Disposition Summary: 03/01/23 02:10 Discharge Ordered Notes: Location: Home sp4 Problem: new sp4 Symptoms: have improved sp4 Condition: Stable sp4 Diagnosis - Wound dehiscence sp4 Followup: sp4 - With: Guzman Quigley MD - When: 03/09/2023 - Reason: Discharge Instructions: - Discharge Summary Sheet sp4 - Sterile Tape Wound Care sp4 - Wound Dehiscence, [id number] sp4 Forms: - Patient Portal Instructions sp4 Signatures: Jayda Singh RN RN vc1 Milan Soria MD MD sp4
== END 2023-03-01 02:41 | disposition home or self-care (01) ==
LOC: ER 00:51
DX: T81.30XA Disruption of wound, unspecified, initial encounter (principal)
CPT/HCPCS: 99282